=== PATIENT | female | born 1965 | race Caucasian/White ===

== ENCOUNTER 2016-12-05 17:11 | Emergency (ER) ==
[2016-12-05 18:22] LABS: MANUAL DIFF NEEDED? NO
[2016-12-05 18:28] LABS: BASO% 0.8 % (0.0-0.8); EOS# 0.43 X1000 (0.0-0.7); EOS% 5.4 % (0.0-10.0); IMM GRAN# 0.02 X1000 (0.0-0.04); IMM GRAN% 0.3 % (0.0-0.5); LYMPH# 2.73 X1000 (1.2-3.4); LYMPH% 34.5 % (20.5-51.1); MCHC 34.9 g/dL (33-37); MONO# 0.68 X1000 (0.11-0.59); MONO% 8.6 % (1.7-9.3); MPV 9.5 FL (7.4-10.4); NEUT% 50.4 % (42.2-75.2); PLT 269 X1000 (130-400)
--- NOTE | 2016-12-05 18:32 | PROVIDER DOCUMENTATION ---
HPI-Abdominal Pain/GI Problem - General Chief Complaint: Abdominal Pain Stated Complaint: ABD PAIN Time Seen by Provider: 12/05/16 17:57 Source: patient Allergies/Adverse Reactions: Patient Allergies Allergy/AdvReac Type Severity Reaction Status Date / Time codeine Allergy NAUSEA/VOMI Verified 12/05/16 17:34 TING Sulfa (Sulfonamide Allergy NAUSEA/VOMI Verified 12/05/16 17:34 Antibiotics) TING Home Medications: Home Medication List Medication Instructions Recorded Confirmed Last Taken Type Albuterol Sulfate [Proair Hfa] 1 puff INH PRN 12/05/16 12/04/16 History Dicyclomine [Bentyl] 10 mg PO AC + HS #30 capsule 12/05/16 Unknown Rx Fluticasone Propionate 110 INH 1 puff INH BID 12/05/16 12/05/16 12/05/16 History [Flovent 110 Microgm Hfa] Pantoprazole [Protonix] 1 tab PO DAILY 12/05/16 12/05/16 12/05/16 History Sertraline HCl [Zoloft] 1 tab PO DAILY 12/05/16 12/05/16 12/05/16 History - History of Present Illness-ABD Nature of Presenting Problems: 51 y/o F presents to ED with 4 day hx of RLQ abd. pain. Pt states 8/10 at it's worst and intermittent in nature. States sharp. Worse with movement and pressure to area. States radiation to suprapubic region. Denies N/V/D/C, fever /chills, urinary sxs. Review of Systems - Adult - REVIEW OF SYSTEMS - ADULT Constitutional: reports: no symptoms reported. denies: chills, fever Eyes: reports: no symptoms reported. denies: blurred vision, double vision Ears, Nose, Mouth & Throat: reports: no symptoms reported. denies: ear pain, nose pain Cardiovascular: reports: no symptoms reported. denies: chest pain, palpitations Respiratory: reports: no symptoms reported. denies: dyspnea on exertion, shortness of breath Gastrointestinal: reports: see HPI, abdominal pain. denies: constipation, diarrhea, nausea, vomiting Genitourinary: reports: no symptoms reported. denies: dysuria, frequency Musculoskeletal: reports: no symptoms reported. denies: joint pain, joint swelling Integumentary: reports: no symptoms reported. denies: nail changes, rash Neurological: reports: no symptoms reported. denies: numbness, paresthesia Psychiatric: reports: no symptoms reported Endocrine: reports: no symptoms reported. denies: cold intolerance, heat intolerance Hematologic/Lymphatic: reports: no symptoms reported. denies: easy bruising, prolonged bleeding Allergic/Immunologic: reports: no symptoms reported All Other Systems: Reviewed and Negative Past History - Adult - PAST MEDICAL HISTORY-ADULT Review of Records: reports: Nursing Assessment Review, Medications Reviewed - PRIOR SURGERIES/PROCEDURES Surgical/Procedure History: reports: appendectomy, hysterectomy, back/neck - SOCIAL HISTORY Smoking: cigarettes, less than 1 pack/day Provider spent 3-5 mins advising pt. on dangers of tobacco.: Discussed manners to quit use, and f/u contacts for add'l counseling. Physical Exam-General - PHYSICAL EXAM-ADULT Initial Vital Signs Reviewed: Yes - CONSTITUTIONAL General Appearance: alert, mild distress - EYES Eyes: pink conjunctivae - HEAD, EARS, NOSE, MOUTH & THROAT HENMT: normocephalic/atraumatic, moist mucous membranes - NECK Neck: normal inspection - RESPIRATORY Respiratory: lungs clear, normal breath sounds. negative: crackles, rales, rhonchi, stridor, wheezing - CARDIOVASCULAR Cardiovascular: regular rate, rhythm. negative: bradycardia, tachycardia - GASTROINTESTINAL (ABDOMEN) Abdominal Exam: normal bowel sounds, soft, tenderness (RLQ), McBurney's point tenderness. negative: distended, guarding, rigid, rebound, Castellanos's sign - MUSCULOSKELETAL Back Exam: no CVA tenderness Extremity: normal gait - SKIN Integumentary: normal color, normal turgor, warm/dry - NEUROLOGIC Neurologic: negative: aphasia - PSYCHIATRIC Psych/Mental Status: normal mood/affect, normal thought content, normal thought process, oriented x 3 Progress - PLAN OF CARE/RESULTS Progress/Plan/Lab Results: Laboratory Tests 12/05/16 12/05/16 12/05/16 18:15 18:15 18:29 WBC 7.92 RBC 5.00 Hgb 15.0 Hct 43.0 MCV 86.0 MCH 30.0 MCHC 34.9 RDW Std Deviation 13.2 Plt Count 269 MPV 9.5 Immature Gran % (Auto) 0.3 Neut % (Auto) 50.4 Lymph % (Auto) 34.5 [place] % (Auto) 8.6 Eos % (Auto) 5.4 Baso % (Auto) 0.8 Immature Gran # (Auto) 0.02 Neut # (Auto) 4.00 Lymph # (Auto) 2.73 [place] # (Auto) 0.68 H Eos # (Auto) 0.43 Baso # (Auto) 0.06 Sodium 139 Potassium 3.9 Chloride 104 Carbon Dioxide 24 L Anion Gap 11 BUN 15 Creatinine 0.9 Estimated GFR/1.73 m2 > 60 BUN/Creatinine Ratio 17 Glucose 98 Calculated Osmolality 278 Calcium 8.9 Total Bilirubin 0.20 AST 17 ALT 24 Alkaline Phosphatase 85 Total Protein 6.6 Albumin 4.1 Globulin 3.0 Albumin/Globulin Ratio 2.0 Amylase 63 Lipase 30 Urine Source CLEAN CATCH Urine Color YELLOW Urine Clarity CLEAR Urine pH 6.5 Ur Specific [place] 1.010 Urine Protein NEGATIVE Urine Ketones NEGATIVE Urine Blood TRACE Urine Nitrite NEGATIVE Urine Bilirubin NEGATIVE Urine Urobilinogen NORMAL Urine Microscopic RBC <10 Urine WBC TRACE A Urine Microscopic WBC <10 Ur Epithelial Cells <10 Urine Crystals URIC ACID PRESENT Urine Bacteria 1+ Urine Casts NONE SEEN Urine Yeast NONE SEEN Urine Glucose NEGATIVE Orders Category Date Time Status Saline Loc DIRECTED Care 12/05/16 17:59 Active NPO Diet 12/05/16 17:[address] ABD/PELVIS W/ IV CONT ONLY [CT] Stat Exams 12/05/16 18:33 Completed AMYLASE [CHEM] Stat Lab 12/05/16 18:15 Completed CBC WITH ELECTRONIC DIFF [HEME] Stat Lab 12/05/16 18:15 Completed COMPREHENSIVE METABOLIC PANEL [CHEM] Stat Lab 12/05/16 18:15 Completed LIPASE [CHEM] Stat Lab 12/05/16 18:[address] W/POSS RFLX CULT [URINALYSIS] Stat Lab 12/05/16 18:29 Completed URINE CULTURE [RM] Routine Lab 12/05/16 20:09 Results 0.9% Sodium Chloride Inj [Ns] 1,000 ml Med 12/05/16 18:33 Discontinued IV 999 mls/hr Vital Signs Temp Pulse Resp BP Pulse Ox 12/05/16 21:15 97.7 F 85 20 121/65 96 12/05/16 17:35 98.8 F 90 18 123/76 100 codeine Allergy (Verified 12/05/16 17:34) NAUSEA/VOMITING Sulfa (Sulfonamide Antibiotics) Allergy (Verified 12/05/16 17:34) NAUSEA/VOMITING Albuterol Sulfate [Proair Hfa] 1 puff INH PRN 12/05/16 Dicyclomine [Bentyl] 10 mg PO AC + HS #30 capsule 12/05/16 Fluticasone Propionate 110 INH [Flovent 110 Microgm Hfa] 1 puff INH BID Pantoprazole [Protonix] 1 tab PO DAILY 12/05/16 Sertraline HCl [Zoloft] 1 tab PO DAILY 12/05/16 Laboratory 12/05/16 12/05/16 12/05/16 18:29 18:15 18:15 WBC 7.92 RBC 5.00 Hgb 15.0 Hct 43.0 MCV 86.0 MCH 30.0 MCHC 34.9 RDW Std Deviation 13.2 Plt Count 269 MPV 9.5 Immature Gran % (Auto) 0.3 Neut % (Auto) 50.4 Lymph % (Auto) 34.5 [place] % (Auto) 8.6 Eos % (Auto) 5.4 Baso % (Auto) 0.8 Immature Gran # (Auto) 0.02 Neut # (Auto) 4.00 Lymph # (Auto) 2.73 [place] # (Auto) 0.68 H Eos # (Auto) 0.43 Baso # (Auto) 0.06 Sodium 139 Potassium 3.9 Chloride 104 Carbon Dioxide 24 L Anion Gap 11 BUN 15 Creatinine 0.9 Estimated GFR/1.73 m2 > 60 BUN/Creatinine Ratio 17 Glucose 98 Calculated Osmolality 278 Calcium 8.9 Total Bilirubin 0.20 AST 17 ALT 24 Alkaline Phosphatase 85 Total Protein 6.6 Albumin 4.1 Globulin 3.0 Albumin/Globulin Ratio 2.0 Amylase 63 Lipase 30 Urine Source CLEAN CATCH Urine Color YELLOW Urine Clarity CLEAR Urine pH 6.5 Ur Specific [place] 1.010 Urine Protein NEGATIVE Urine Ketones NEGATIVE Urine Blood TRACE Urine Nitrite NEGATIVE Urine Bilirubin NEGATIVE Urine Urobilinogen NORMAL Urine Microscopic RBC <10 Urine WBC TRACE A Urine Microscopic WBC <10 Ur Epithelial Cells <10 Urine Crystals URIC ACID PRESENT Urine Bacteria 1+ Urine Casts NONE SEEN Urine Yeast NONE SEEN Urine Glucose NEGATIVE Discussed pt with Dr. Bailey; states need [employer] consult before d/c home. Discussed results and f/u with pt. - CT/MRI 1 CT Study: Abdomen, Pelvis Impression: See EMR Report (1. 2 cm left ovarian teratoma. 2. Fatty liver. 3. No evidence of appendicitis of other definite acute path. -per Dr. Messer) - CONSULTS/PCP/HOSPITALIST Notification #1 *Consult/PCP/Hospitalist*: Dr. Brasher Time Discussed: 20:27 Reason/Comments: teratoma on L ovary Consult Disposition: F/U in office Departure - Departure Time of Disposition Order: 20:48 DIAGNOSIS: Teratoma of left ovary, Fatty liver Abdominal pain Qualifiers: Abdominal location: unspecified location Qualified Code(s): R10.9 - Unspecified abdominal pain Disposition: HOME 01 Certified Medical Emergency: Emergent Condition: Stable Additional Instructions: Follow up with specialist for further management. Take medications as directed. ED Follow Up Instructions: You have been treated by a care provider in the Emergency Department. These instructions are being provided to you so you can have an understanding of how to care for yourself upon discharge. Upon discharge from the Emergency Department, you are responsible for making arrangements for follow-up care by a physician of your choice. Take all prescribed medications as directed. Return to the Emergency Department immediately for any new or worsening symptoms. You may call the Physician Referral phone number at [phone] to obtain a list of Physicians who are taking new patients. Prescriptions: Dicyclomine [Bentyl] 10 mg PO AC + HS #30 capsule Referrals: Samy Brown MD [Primary Care Provider] - Henrry Brasher MD [STAFF PHYSICIAN] - Forms: Return to School/Parent Work Instructions: Abdominal Pain, Women, Dicyclomine tablets or capsules, Hepatomegaly Attestation - Physician/ JOEL Attestation Patient care was provided by Advanced Practice Provider:: Yes Advanced Practice Provider:: Nai Ellsworth Advanced Practice Provider documentation review:: The Mid-level provider documentation, treatment plan and medical decision making was reviewed by the physician who agrees with all treatment and medical decision making by the P.
[2016-12-05] MEDS ORDERED: NS 1,000 ML IV ONE (18:33)
[2016-12-05 18:41] LABS: AGAP 11; ALBUMIN 4.1 g/dL (3.5-5.0); ALKALINE PHOSPHATASE 85 U/L (32-104); AMYLASE 63 U/L (20-200); BUN 15 mg/dL (8-22); CALCIUM 8.9 mg/dL (8.8-10.2); CHLORIDE 104 mmol/L (98-107); COSMO 278; GOT 17 U/L (10-30); GPT 24 U/L (10-36); LIPASE 30 U/L (13-60); POTASSIUM 3.9 mmol/L (3.5-5.1); SODIUM 139 mmol/L (136-145); TCO2 24 mmol/L (25-35); TOTAL PROTEIN 6.6 g/dL (6.3-8.3)
[2016-12-05 18:48] LABS: URINE SOURCE CLEAN CATCH
[2016-12-05 19:07] LABS: BILIRUBIN URINE NEGATIVE (NEGATIVE); BLOOD URINE TRACE (NEGATIVE); CLARITY CLEAR (CLEAR); COLOR YELLOW; GLUCOSE URINE NEGATIVE (NEGATIVE); LEUKOCYTES URINE TRACE (NEGATIVE); NITRITE URINE NEGATIVE (NEGATIVE); PH URINE 6.5; PROTEIN URINE NEGATIVE (NEGATIVE); UROBILINOGEN URINE NORMAL
[2016-12-05 19:08] LABS: URINE EPITHELIAL CELLS <10 /HPF (<10); URINE RBC <10 /HPF (<10); URINE WBC <10 /HPF (<10)
[2016-12-05 19:09] LABS: URINE CAST NONE SEEN /LPF; URINE CRYSTAL URIC ACID PRESENT /HPF; URINE CULTURE PL NEEDED? YES
[2016-12-05 21:17] VITALS: BP 121/65
--- NOTE | 2016-12-06 09:22 | Diag Imaging Result Document ---
PROCEDURE NAME: CT ABD/PELVIS W/ IV CONT ONLY - 12/05/2016 CT OF THE ABDOMEN WITH INTRAVENOUS CONTRAST: FINDINGS: There is atelectasis or fibrosis present in the right middle lobe. There are multiple splenules in the left upper quadrant. The liver is somewhat hypodense suggesting fatty change. The gallbladder is not distended or inflamed in appearance and there are no apparent gallstones. The adrenal glands are not enlarged. The pancreas is normal in appearance. There is no evidence of hydronephrosis or mass in the kidneys. The small bowel is not distended. There is some diverticulosis coli. CT OF THE PELVIS WITH INTRAVENOUS CONTRAST: FINDINGS: The appendix by history has been previously resected as has the uterus. There are no abnormal fluid collections. There is what appears to be a small dermoid teratoma on the left measuring 2.4 cm in diameter. IMPRESSION: Left ovarian dermoid teratoma. Hepatic steatosis. No evidence of acute disease otherwise.
== END 2016-12-05 21:18 | disposition home or self-care (01) ==
LOC: P.ED 17:11
DX: D27.1 Benign neoplasm of left ovary (principal); R10.31 Right lower quadrant pain; K76.0 Fatty (change of) liver, not elsewhere classified; F17.210 Nicotine dependence, cigarettes, uncomplicated; Z71.6 Tobacco abuse counseling; Z79.899 Other long term (current) drug therapy; Z79.51 Long term (current) use of inhaled steroids
CPT/HCPCS: 74177; 80053; 81001; 82150; 83690; 85025; 87088; 96360; J7030; Q9967